=== PATIENT | male | born 1985 | race Caucasian/White ===

== ENCOUNTER 2020-02-07 12:15 | Emergency (ER) | payer SELFPAY ==
--- NOTE | 2020-02-07 13:29 | EDM.PDOC ---
ED HPI GENERAL MEDICAL PROBLEM - General Chief Complaint: Skin Complaint Stated Complaint: SKIN COMPLAINT/HANDS AND FEET Time Seen by Provider: 02/07/20 12:29 Source of Information: Reports: Patient History Limitations: Reports: No Limitations - History of Present Illness INITIAL COMMENTS - FREE TEXT/NARRATIVE: Patient is a 34-year-old male who presents to the emergency department with complaints of lesions to the pads of his right second and third fingers, cracks and dry skin to his left hand, and blisters to the bottom of his right foot. Patient states that he has been on an alcohol binge for the last week or so and has also been smoking meth. He states a few days back he cleaned his house with cleaning solution and the next day, he noticed that he had blisters on the tips of his right second and third fingers, as well as cracks on his left hand. He also has a fungal infection the fingernail of his left third finger which she states is been there for months. The blisters on his right hand opened and have scabbed over. He complains that they are tender however. He states that he has been fairly intoxicated for the last week or so, so he cannot remember if he may have burned his right hand. With regard to his foot, he states that he had bought new shoes and went out drinking and was walking around for a long time. The next morning he had painful blisters on the bottom of his feet. He denies any fever, chills, nausea, or vomiting. Bilateral Hand Pain Score (Numeric/FACES): 9 Bilateral Feet Pain Score (Numeric/FACES): 9 - Related Data Allergies Allergy/AdvReac Type Severity Reaction Status Date / Time No Known Allergies Allergy Verified 02/07/20 12:33 Home Meds: Home Meds Clotrimazole [Alevazol] 56.7 gm TP BID #1 oint...g. 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 ED EXAM, SKIN/RASH Exam: See Below Exam Limited By: No Limitations General Appearance: Alert, WD/WN, No Apparent Distress Respiratory/Chest: No Respiratory Distress, Lungs Clear, Normal Breath Sounds, No Accessory Muscle Use, Chest Non-Tender Cardiovascular: Normal Peripheral Pulses, Regular Rate, Rhythm, No Edema, No Gallop, No JVD, No Murmur, No Rub Extremities: Other (Thick, callused skin throughout the left hand with scattered cracks present to the ventral aspect of the first through fourth fingers. Deformed fingernail on the left third finger likely due to fungal infection. 2 cm linear, scabbed lesion to the pad of the right second finger. 1.5 cm linear, scabbed lesion to the pad of the right third finger. These have the appearance of partially healed second-degree lizarraga. 3 cm blister to the distal ventral aspect of the right foot. No obvious erythema or drainage.) Neurological: Alert, Oriented, CN II-XII Intact, Normal Cognition, Normal Gait, Normal Reflexes, No Motor/Sensory Deficits Psychiatric: Normal Affect, Normal Mood Course - Vital Signs Last Recorded V/S: Last Vital Signs Temp 97.5 F 02/07/20 12:30 Pulse 124 H 02/07/20 12:30 Resp 16 02/07/20 12:30 BP 110/70 02/07/20 12:30 Pulse Ox 97 02/07/20 12:30 Departure - Departure Time of Disposition: 13:25 Disposition: Home, Self-Care 01 Condition: Good Clinical Impression: Tinea, Burn - Discharge Information *PRESCRIPTION DRUG MONITORING PROGRAM REVIEWED*: No *COPY OF PRESCRIPTION DRUG MONITORING REPORT IN PATIENT ROSA: No Prescriptions: Naproxen [Naprosyn] 500 mg PO Q12HR PRN #10 tab PRN Reason: Pain cephALEXin [Keflex] 500 mg PO Q6H #20 capsule Clotrimazole [Alevazol] 56.7 gm TP BID #1 oint...g. Instructions: Burn Care, Adult Referrals: PCP,None [Primary Care Provider] - Forms: ED Department Discharge Additional Instructions: You were seen in the emergency department today for blisters to your right hand and right foot, as well as dry, thick, cracked skin to your left hand. As we discussed, the blisters on your right hand appear to have the appearance of lizarraga and your left hand appears to be a fungal infection. Prescriptions for an antibiotic, antifungal, and pain medications have been sent to [facility] pharmacy. Take these medications as prescribed. I would recommend that you follow-up in the clinic with a primary care provider early next week for a recheck. Return to the ER as needed. Sepsis Event Note - Evaluation Sepsis Screening Result: No Definite Risk - Focused Exam Vital Signs: Vital Signs Temp Pulse Resp BP Pulse Ox 02/07/20 12:30 97.5 F 124 H 16 110/70 97 Date Exam was Performed: 02/07/20 Time Exam was Performed: 15:40
== END 2020-02-07 13:45 | disposition home or self-care (01) ==
LOC: JD.ED 12:15
DX: B35.9 Dermatophytosis, unspecified (principal); T25.221A Burn of second degree of right foot, initial encounter
CPT/HCPCS: 99283